=== PATIENT | male | born 1970 | race Caucasian/White ===

== ENCOUNTER 2019-09-24 08:06 | Emergency (ER) | payer MEDICARE ==
[2019-09-24] MEDS ORDERED: ONDANSETRON HCL INJ/PF 4 MG/2 ML SDV IV ONE (08:44)
[2019-09-24] MEDS ORDERED: KETOROLAC TROMETHAMINE INJ/PF 30 MG/1 ML SDV IV ONE (08:49)
--- NOTE | 2019-09-24 08:52 | ER Document Report ---
ED Medical Screen (RME) - General Stated Complaint: BACK PAIN Time Seen by Provider: 09/24/19 08:44 Primary Care Provider: ALVARO GARZA MD [Primary Care Provider] - Follow up as needed Mode of Arrival: Ambulatory Information source: Patient Notes: 49-year-old female with no prior history presents to the emergency department with complaints of right-sided abdominal pain that started this morning. Patient reports after she woke up she started having this pain to the right side. Has not had anything to eat this morning. Denies fever. Reports vomiting and lots of diarrhea. Denies history of kidney stones. Patient still has her appendix and gallbladder. Patient's last menstrual period was last week. Denies COVID exposure. Patient right upper quad and right lower quad tender to palpate. Denies pain with void, denies difficulty voiding. I have greeted and performed a rapid initial assessment of this patient. A comprehensive ED assessment and evaluation of the patient, analysis of test results and completion of the medical decision making process will be conducted by additional ED providers. TRAVEL OUTSIDE OF THE [place] IN LAST 30 DAYS: No - Related Data Allergies/Adverse Reactions: No Known Allergies Allergy (Verified 07/29/14 13:25) Past Medical History - Past Medical History Cardiac Medical History: Reports: Hx Hypercholesterolemia Malignancy Medical History: Reports Hx Testicular Cancer Musculoskeltal Medical History: Reports Hx Musculoskeletal Deformity - Immunizations Hx Diphtheria, Pertussis, Tetanus Vaccination: Yes Physical Exam - Vital signs Vitals: Temp Pulse Resp BP Pulse Ox 97.7 F 84 17 146/78 H 98 09/24/19 08:07 09/24/19 08:07 09/24/19 08:07 09/24/19 08:07 09/24/19 08:07 Course - Vital Signs Vital signs: Temp Pulse Resp BP Pulse Ox 97.7 F 84 17 146/78 H 98 09/24/19 08:07 09/24/19 08:07 09/24/19 08:07 09/24/19 08:07 09/24/19 08:07 Doctor's Discharge - Discharge Referrals: ALVARO GARZA MD [Primary Care Provider] - Follow up as needed
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
[2019-09-24] MEDS ORDERED: KETOROLAC TROMETHAMINE 60 MG/2 ML SDV IM ONE (09:12)
[2019-09-24] MEDS ORDERED: LIDOCAINE 5% (700 MG) TRANSDERMAL ADH..PATCH TP ONE (09:13)
[2019-09-24] MEDS ORDERED: METHOCARBAMOL 750 MG TABLET PO ONE (09:32)
[2019-09-24 10:39] LABS: APPEARANCE,URINE CLEAR; BILIRUBIN,URINE NEGATIVE (NEGATIVE); COLOR,URINE YELLOW; GLUCOSE, URINE NEGATIVE (NEGATIVE); KETONES,URINE NEGATIVE (NEGATIVE); LEUKOCYTE ESTERASE,URINE NEGATIVE (NEGATIVE); NITRITE,URINE NEGATIVE (NEGATIVE); PROTEIN,URINE 30 mg/dL (NEGATIVE); URINE SPECIFIC GRAVITY 1.025; UROBILINOGEN,URINE NEGATIVE mg/dL (<2.0)
[2019-09-24 11:04] VITALS: BP 121/81
== END 2019-09-24 11:04 | disposition home or self-care (01) ==
LOC: ER 08:06
DX: M54.41 Lumbago with sciatica, right side (principal); M54.42 Lumbago with sciatica, left side; G89.29 Other chronic pain; Z79.891 Long term (current) use of opiate analgesic; Z79.899 Other long term (current) drug therapy; Z85.47 Personal history of malignant neoplasm of testis
CPT/HCPCS: 99283; 96372; 81001; J1885; A9270 ×2; J3490